=== PATIENT | female | born 1955 | race Caucasian/White ===

== ENCOUNTER 2022-11-29 08:16 | Day surgery (SDC) | payer MEDICARE, BC ==
[~2022-11-29 08:16] MED LIST: Bupivacaine 0.25% 10 ML SDV ONE; EPINEPHrine 1 MG/ML 30 ML MDV IRR SCH; Lactated Ringers 1,000 ML IV SCH; Lidocaine 1%/Sod Bicarbonate in NS 8.4% 1 ML Syringe IDERM PRN; Sodium Chloride 0.9% 10 ML Syringe FLUSH PRN; Sodium Chloride 0.9% 10 ML Syringe FLUSH SCH
[2022-11-29] MEDS ORDERED: Scopolamine 1.5 MG Transdermal Patch TRDERM PRN (08:33)
[2022-11-29] MEDS ORDERED: Ondansetron 4 MG/2 ML SDV ONE (08:40)
[2022-11-29] MEDS ORDERED: Dexamethasone 4 MG/ML 5 ML MDV ONE (08:40)
[2022-11-29] MEDS ORDERED: ceFAZolin 2 GM Vial ONE (08:40)
[2022-11-29] MEDS ORDERED: Ketorolac 15 MG/ML SDV ONE (08:41)
[2022-11-29] MEDS ORDERED: Midazolam 1 MG/ML 2 ML SDV ONE (08:41)
[2022-11-29] MEDS ORDERED: Propofol 200 MG/20 ML SDV ONE ×2 (08:41→09:48)
[2022-11-29] MEDS ORDERED: fentaNYL 100 MCG/2 ML SDV ONE (08:41)
[2022-11-29] MEDS ORDERED: Lidocaine 1% 4 ML ONE (08:41)
[2022-11-29] MEDS ORDERED: Ondansetron 4 MG/2 ML SDV IVPUSH PRN (10:25)
[2022-11-29] MEDS ORDERED: fentaNYL 100 MCG/2 ML SDV IVPUSH PRN (10:25)
[2022-11-29] MEDS ORDERED: HYDROmorphone 0.5 MG/0.5 ML Syringe IVPUSH PRN (10:25)
== END 2022-11-29 12:45 | disposition home or self-care (01) ==
LOC: JD.SDS 08:16
PROVIDERS: ATTEND Orthopaedic Surgery
DX: S83.242A Other tear of medial meniscus, current injury, left knee, initial encounter (principal); I10 Essential (primary) hypertension; E78.00 Pure hypercholesterolemia, unspecified; M81.0 Age-related osteoporosis without current pathological fracture; Z79.899 Other long term (current) drug therapy; Z98.890 Other specified postprocedural states; Z90.49 Acquired absence of other specified parts of digestive tract; Z88.0 Allergy status to penicillin; Z79.82 Long term (current) use of aspirin
CPT/HCPCS: 29881; A9270; J0171; J0690; J1100; J1885; J2250; J2405; J2704; J3010; J3490; J7120; 01400; 01402